=== PATIENT | male | born 1975 | race Caucasian/White ===

== ENCOUNTER 2022-10-26 08:20 | Outpatient (CLI) | payer OTHER, SELFPAY | END 2022-10-26 08:21 | disposition home or self-care (01) | PROVIDERS: PCP Family Medicine; Visit Provider Family Medicine | DX: Z00.00 Encounter for general adult medical examination without abnormal findings (principal); E78.2 Mixed hyperlipidemia; E66.01 Morbid (severe) obesity due to excess calories | CPT/HCPCS: 80053; 80061 ==

== ENCOUNTER 2022-10-28 09:45 | Outpatient (CLI) | payer OTHER, SELFPAY | END 2022-10-28 09:46 | disposition home or self-care (01) | LOC: NFLDREF 10-30 07:31 | PROVIDERS: PCP Family Medicine; Referring Provider Family Medicine; Visit Provider Family Medicine | DX: Z00.00 Encounter for general adult medical examination without abnormal findings (principal); Z12.5 Encounter for screening for malignant neoplasm of prostate | CPT/HCPCS: 84153 ==

== ENCOUNTER 2023-02-08 20:50 | Outpatient (CLI) | payer OTHER, SELFPAY ==
--- NOTE | 2023-02-14 12:55 | W.PM.SLEEP ---
Sleep Study Details Details Interpreting Provider: Manav Date of Sleep Study: 02/08/23 Sleep Study Details: STUDY TYPE:? Hospital-based polysomnogram ? BMI:? 33.9 ORDERING PROVIDER:? Lauren INDICATION:? Concerns about sleep apnea ? SLEEP SUMMARY:? Total sleep time 395 minutes, arousal index 18.7 RESPIRATORY SUMMARY:? Mean oxygen awake 96 asleep 90 5, minimum 91 AHI 9.6, RDI 20.7 Supine AHI 44.4, supine REM AHI 22.9 Nonsupine AHI 5.6 PERIODIC LIMB MOVEMENTS OF SLEEP:? None were noted CARDIAC:? Awake 67, asleep 59, PVCs were IMPRESSION:? Moderate obstructive sleep apnea with an AHI of 9.6 in RDI of 20.7. Significant supine position dependency but apnea present in the nonsupine position. RECOMMENDATION: Treatment options include AutoSet CPAP, potentially a dental appliance, and/or airway expansion surgery.
== END 2023-02-08 20:51 | disposition home or self-care (01) ==
LOC: SLEEP 20:52
PROVIDERS: PCP Family Medicine; Visit Provider Family Medicine
DX: G47.33 Obstructive sleep apnea (adult) (pediatric) (principal)
CPT/HCPCS: 95810

== ENCOUNTER 2024-07-30 08:25 | Outpatient (CLI) | payer OTHER, SELFPAY | END 2024-07-30 08:26 | disposition home or self-care (01) | PROVIDERS: Visit Provider Family Medicine | DX: E78.2 Mixed hyperlipidemia (principal); Z13.1 Encounter for screening for diabetes mellitus; E66.9 Obesity, unspecified | CPT/HCPCS: 80048; 80061 ==